=== PATIENT | male | born 1955 | race African-American/Black ===

== ENCOUNTER 2017-08-11 11:58 | Inpatient (IN) | payer OTHER ==
[~2017-08-11] VITALS: Ht 182.9 cm; Wt 68.0 kg
[~2017-08-11 11:58] MED LIST: AMLODIPINE BESY10 MG PER TUBE; APAP650 PER TUBE; ASPIRIN325 PER TUBE; BACTRIM 400-801 EACH PER TUBE; BAZA CR.1 E1 TOP; BROVANA15 MCG/2 M INH; COLACE100 MG PO; COSOPT PF EYE1 EACH OPHTHALMIC; DEPAKENE250 MG PER TUBE; DUONEB 2.5-0.5 M3 ML INH; ELIQUIS2.5 MG PER TUBE; ENOXAPARIN40 MG/0.1 SUBQ; GLUCERNA1 EACH PER TUBE; HUMALOG100 UNIT/1 SUBQ; HYDRALAZINE 2525 MG IV PUSH; HYDROCODONE-ACE15 ML PER TUBE; JEVITY 1.2 CAL237 ML PO; LANSOPRAZOLE30 MG PER TUBE; LOPERAMIDE 2 MG2 M1 PER TUBE; LOPRESSOR25 PER TUBE; LOPRESSOR50 PER TUBE; LORAZEPAM 22 MG/1 ML IV PUSH; NEURONTIN 300300 M1 PER TUBE; OXYCODONE HCL 55 MG PER TUBE; PEPCID20 MG PER TUBE; PIPERACIL-TA3.375 G1 IV; PREDNISONE 20 M20 MG PER TUBE; PROBIOTIC1 EAC1 PER TUBE; PULMICORT0.5 MG/22 INH; RISPERDAL2 MG PER TUBE; ROBITUSSIN100 MG/53 PER TUBE; SEROQUEL 25 MG25 M1 PER TUBE; TOPAMAX50 MG PER TUBE; UNICOMPLEX M TA1 TA1 PER TUBE; XALATAN2.5 ML OPHTHALMIC
[2017-08-11 11:59] VITALS: BP 96/70
[2017-08-11] MEDS ORDERED: PERIOGARD473 ML SWISH&SPIT (13:44)
[2017-08-11] MEDS ORDERED: ELIQUIS2.5 MG PO (13:44)
[2017-08-11 14:28] LABS: ABSOLUTE NEUTROPHILS 7.3 thou/uL (1.4-8.2); BASOPHILS 0.4 % (0.0-2.0); EOSINOPHILS 1.6 % (0.0-3.0); HEMATOCRIT 41.3 % (42.0-52.0); HEMOGLOBIN 13.7 gm/dL (14.0-18.0); LYMPHOCYTES 10.1 % (24.0-44.0); MCH 31.7 pg (26.0-34.0); MCHC 33.2 g/dL (28.0-37.0); MCV 95.5 fL (80.0-100.0); MONOCYTES 9.4 % (1.0-8.0); PLATELET COUNT 282 thou/uL (150-400); POLYS 78.5 % (36.0-66.0); RBC 4.33 mil/uL (4.50-6.00); RDW 14.1 % (10.5-14.5); WBC 9.4 thou/uL (4.0-11.0)
[2017-08-11 14:29] LABS: MANUAL DIFF NO
[2017-08-11 14:37] LABS: ANION GAP 4 mmol/L (7-16); BUN 24 mg/dL (7-18); CALCIUM 10.2 mg/dL (8.5-10.1); CHLORIDE 113 mmol/L (98-107); CO2 31 mmol/L (21-32); CREATININE 0.7 mg/dL (0.7-1.3); GLUCOSE 106 mg/dL (74-106); SODIUM 148 mmol/L (136-145)
[2017-08-11 14:38] LABS: URINE BILIRUBIN NEGATIVE (Negative); URINE BLOOD TRACE (Negative); URINE COLOR YELLOW; URINE GLUCOSE-RANDOM* NEGATIVE (Negative); URINE KETONES NEGATIVE (Negative); URINE PROTEIN (DIPSTICK) TRACE (Negative); URINE UROBILINOGEN 0.2 E.U./dl (0.2-1.0)
[2017-08-11 14:40] LABS: URINE LEUKOCYTES-REFLEX 3+ (Negative)
[2017-08-11 14:43] LABS: SQUAMOUS None Seen /LPF (0-3)
[2017-08-11 14:44] LABS: CASTS None Seen /LPF (None Seen); CRYSTALS None Seen /LPF (None Seen); URINE RBC 3-10 Few /HPF (0-2); URINE WBC-REFLEX >25 Many /HPF (0-5)
[2017-08-11 14:45] LABS: ALBUMIN 2.7 g/dL (3.4-5.0); ALKALINE PHOSPHATASE 84 U/L (46-116); MAGNESIUM 2.3 mg/dL (1.8-2.4); SGOT 12 U/L (15-37); SGPT 22 U/L (30-65); TOTAL BILIRUBIN 0.2 mg/dL (<0.1-1.0); TOTAL PROTEIN 7.1 g/dL (6.4-8.2); TROPONIN-I < 0.04 ng/mL (<0.06)
[2017-08-11 15:55] VITALS: BP 98/68
[2017-08-11] MEDS ORDERED: ATIVAN0.5 MG SUBLING (16:24)
[2017-08-11] MEDS ORDERED: ATROPINE SULFATE2 ML PO (16:26)
[2017-08-11] MEDS ORDERED: SILTUSSIN100 MG/5 M PER TUBE (16:28)
[2017-08-11] MEDS ORDERED: HYDRALAZINE 2525 MG PER TUBE (16:32)
[2017-08-11 19:43] VITALS: BP 125/88
[2017-08-12 03:51] VITALS: BP 106/76
[2017-08-12 05:44] LABS: ABSOLUTE NEUTROPHILS 4.6 thou/uL (1.4-8.2); BASOPHILS 0.5 % (0.0-2.0); EOSINOPHILS 1.5 % (0.0-3.0); HEMATOCRIT 36.7 % (42.0-52.0); HEMOGLOBIN 12.1 gm/dL (14.0-18.0); LYMPHOCYTES 15.7 % (24.0-44.0); MCH 31.8 pg (26.0-34.0); MCV 96.4 fL (80.0-100.0); MONOCYTES 11.6 % (1.0-8.0); PLATELET COUNT 250 thou/uL (150-400); POLYS 70.7 % (36.0-66.0); RBC 3.81 mil/uL (4.50-6.00); RDW 14.1 % (10.5-14.5); WBC 6.5 thou/uL (4.0-11.0)
[2017-08-12 05:47] LABS: MANUAL DIFF NO
[2017-08-12 05:52] LABS: CALCIUM 9.4 mg/dL (8.5-10.1); CREATININE 0.6 mg/dL (0.7-1.3); POTASSIUM 3.7 mmol/L (3.5-5.1)
[2017-08-12 08:11] VITALS: BP 111/65
[2017-08-12 16:02] VITALS: BP 114/75
[2017-08-12 19:42] VITALS: BP 135/95
[2017-08-13 03:46] VITALS: BP 113/84
[2017-08-13 06:52] LABS: HEMATOCRIT 36.1 % (42.0-52.0); HEMOGLOBIN 11.8 gm/dL (14.0-18.0); MCH 31.8 pg (26.0-34.0); MCHC 32.8 g/dL (28.0-37.0); RBC 3.72 mil/uL (4.50-6.00); RDW 13.9 % (10.5-14.5); WBC 5.7 thou/uL (4.0-11.0)
[2017-08-13 07:02] LABS: CALCIUM 9.3 mg/dL (8.5-10.1); CREATININE 0.6 mg/dL (0.7-1.3); MAGNESIUM 1.9 mg/dL (1.8-2.4); POTASSIUM 3.7 mmol/L (3.5-5.1)
[2017-08-13 08:00] VITALS: BP 135/84
[2017-08-13 15:49] VITALS: BP 137/74
[2017-08-13 19:53] VITALS: BP 145/91
[2017-08-14 05:05] VITALS: BP 119/71
[2017-08-14 09:00] VITALS: BP 129/76
[2017-08-14 17:02] VITALS: BP 137/87
[2017-08-14 19:59] VITALS: BP 123/86
[2017-08-15 03:30] VITALS: BP 128/89
[2017-08-15 09:01] VITALS: BP 140/95
== END 2017-08-15 19:38 | DRG 190 ==
LOC: ER 11:58 → EROBS 14:59 → 4S 15:48
PROVIDERS: Emergency Medicine; Internal Medicine Geriatric Medicine; Nurse Practitioner Family
DX: J44.0 Chronic obstructive pulmonary disease with (acute) lower respiratory infection (principal); J18.9 Pneumonia, unspecified organism; E46 Unspecified protein-calorie malnutrition; G93.1 Anoxic brain damage, not elsewhere classified; E87.1 Hypo-osmolality and hyponatremia; N39.0 Urinary tract infection, site not specified; B37.0 Candidal stomatitis; E86.0 Dehydration; I10 Essential (primary) hypertension; F20.9 Schizophrenia, unspecified; B96.5 Pseudomonas (aeruginosa) (mallei) (pseudomallei) as the cause of diseases classified elsewhere; Z51.5 Encounter for palliative care; N40.0 Benign prostatic hyperplasia without lower urinary tract symptoms; F32.9 Major depressive disorder, single episode, unspecified; Z87.891 Personal history of nicotine dependence; Z83.3 Family history of diabetes mellitus; Z68.20 Body mass index [BMI] 20.0-20.9, adult
CPT/HCPCS: 10100